=== PATIENT | female | born 1985 | race Caucasian/White ===

== ENCOUNTER 2021-06-13 11:39 | Emergency (ER) | payer OTHER ==
[~2021-06-13 11:39] MED LIST: AMOXICILLIN500 MG PO; DEPO-PROVE150 MG/1 M IM; FELDENE10 MG PO; KEFLEX CAP 500500 MG PO; LISINOPRIL20 MG PO; MICROZIDE12.5 MG PO; PROVENTIL HFA6.7 GM INH; VENTOLIN/PROVE0.5 ML INH; ZITHROMAX250 MG PO
[2021-06-13 13:02] LABS: HEMOGLOBIN 11.1 gm/dl (12.3-15.3); RED BLOOD COUNT 3.75 M/UL (4.00-5.10); WHITE BLOOD COUNT 6.2 K/UL (4.5-11.0)
[2021-06-13 13:30] LABS: BUN/CREATININE RATIO 18 (0-10)
== END 2021-06-13 16:08 | disposition home or self-care (01) ==
LOC: ER1 11:39
PROVIDERS: Physician Assistant
DX: R10.9 Unspecified abdominal pain (principal); R10.813 Right lower quadrant abdominal tenderness; I50.9 Heart failure, unspecified; J44.9 Chronic obstructive pulmonary disease, unspecified; Z88.2 Allergy status to sulfonamides; F17.200 Nicotine dependence, unspecified, uncomplicated
CPT/HCPCS: 80053; 80307; 81001; 84703; 85025; 99284; Q9967

== ENCOUNTER 2021-10-18 13:19 | Observation (INO) | payer OTHER ==
[~2021-10-18] VITALS: Ht 160 cm; Wt 99.8 kg
[~2021-10-18 13:19] MED LIST changes: -LISINOPRIL20 MG PO
[2021-10-18 14:31] LABS: HEMOGLOBIN 13.1 gm/dl (12.3-15.3); RED BLOOD COUNT 4.41 M/UL (4.00-5.10)
[2021-10-18 15:06] LABS: BUN/CREATININE RATIO 23 (0-10)
[2021-10-19 04:44] LABS: HEMOGLOBIN 12.7 gm/dl (12.3-15.3); RED BLOOD COUNT 4.28 M/UL (4.00-5.10); WHITE BLOOD COUNT 5.2 K/UL (4.5-11.0)
[2021-10-19 05:00] LABS: BUN/CREATININE RATIO 21 (0-10)
[2021-10-19] MEDS ORDERED: KEPPRA500 MG PO (12:37)
[2021-10-19] MEDS ORDERED: THORAZINE 50 MG50 MG PO (12:37)
[2021-10-19] MEDS ORDERED: BUSPIRONE HCL5 MG PO (12:38)
[2021-10-19] MEDS ORDERED: HYDROCHLOROTHIA25 MG PO (12:38)
[2021-10-19] MEDS ORDERED: CLARITIN10 MG PO (12:39)
[2021-10-19] MEDS ORDERED: PROAIR HFA8.5 GM INH (12:39)
[2021-10-19] MEDS ORDERED: MACROBID 100 M100 MG PO (12:39)
[2021-10-19] MEDS ORDERED: MOBIC7.5 MG PO (12:40)
[2021-10-19] MEDS ORDERED: LISINOPRIL20 MG PO (20:26)
[2021-10-20] MEDS ORDERED: MICONAZOLE 3200 MG VG (10:49)
[2021-10-20] MEDS ORDERED: LISINOPRIL10 MG PO (10:49)
== END 2021-10-20 14:30 | disposition other institution (70) ==
LOC: ER1 13:19 → M/S 18:46 → CDU 18:46 → M/S 22:09
PROVIDERS: Emergency Medicine; ADMIT Internal Medicine
DX: R42 Dizziness and giddiness (principal); I10 Essential (primary) hypertension; J45.909 Unspecified asthma, uncomplicated; G43.909 Migraine, unspecified, not intractable, without status migrainosus; Z79.899 Other long term (current) drug therapy
CPT/HCPCS: 36415; 70450; 70496; 70498; 71045; 80048; 80053; 81001; 82550; 82553; 84484; 84703; 85025; 85379; 87040; 93005; 96372; 99285; G0378; J1650; Q0161; Q9967

== ENCOUNTER 2022-02-19 12:53 | Emergency (ER) | payer OTHER ==
[~2022-02-19 12:53] MED LIST changes: +BUSPIRONE HCL5 MG PO; +CLARITIN10 MG PO; +HYDROCHLOROTHIA25 MG PO; +KEPPRA500 MG PO; +LISINOPRIL10 MG PO; +LISINOPRIL20 MG PO; +MACROBID 100 M100 MG PO; +MICONAZOLE 3200 MG VG; +MOBIC7.5 MG PO; +PROAIR HFA8.5 GM INH; +THORAZINE 50 MG50 MG PO
[2022-02-19 14:08] LABS: HEMOGLOBIN 11.9 gm/dl (12.3-15.3); RED BLOOD COUNT 4.1 M/UL (4.00-5.10); WHITE BLOOD COUNT 7.4 K/UL (4.5-11.0)
[2022-02-19 14:35] LABS: BUN/CREATININE RATIO 33 (0-10)
[2022-02-19] MEDS ORDERED: ASPIRIN EC81 MG PO (15:12)
[2022-02-19] MEDS ORDERED: POTASSIUM CHLO10 ME1 PO (15:13)
[2022-02-19] MEDS ORDERED: SYMBICORT 160-1 INHA INH (15:13)
[2022-02-19] MEDS ORDERED: LISINOPRIL10 MG PO (15:13)
[2022-02-19] MEDS ORDERED: FUROSEMIDE20 MG PO (15:14)
[2022-02-19] MEDS ORDERED: FAMOTIDINE40 MG PO (15:14)
[2022-02-19] MEDS ORDERED: SERTRALINE HCL50 MG PO (15:14)
[2022-02-19] MEDS ORDERED: ALLERGY RELIEF10 M1 PO (15:14)
[2022-02-19] MEDS ORDERED: SUCRALFATE1 GM PO (15:15)
[2022-02-19] MEDS ORDERED: TYLENOL 8 HOUR650 MG PO (15:15)
[2022-02-19] MEDS ORDERED: ATORVASTATIN CA40 MG PO (15:15)
[2022-02-19] MEDS ORDERED: PEPCID20 MG PO (16:53)
== END 2022-02-19 17:00 | disposition home or self-care (01) ==
LOC: ER1 12:53
PROVIDERS: Physician Assistant
DX: R07.9 Chest pain, unspecified (principal); R10.10 Upper abdominal pain, unspecified; Z86.19 Personal history of other infectious and parasitic diseases; Z87.891 Personal history of nicotine dependence; Z20.822 Contact with and (suspected) exposure to COVID-19
CPT/HCPCS: 0240U; 71045; 80053; 81001; 82550; 82553; 84484; 85025; 85379; 93005; 96374; 99285